=== PATIENT | male | born 1960 ===

== ENCOUNTER 2016-09-30 13:36 | Emergency (ER) | payer BC ==
--- NOTE | 2016-10-08 08:11 | ER ---
ADMIT: 09/30/2016 RM/LOC: ER [facility] MR#: [id number] [address] [facility] [address] [place], [place] [address] ARGELIA FAJARDO [address] [place] [address] Emergency Room Report SEX: M AGE: 56 : 1960 DATE: 09/30/2016 HISTORY OF PRESENT ILLNESS: The patient is a 56-year-old, male, who presents to the emergency room complaining of some weakness, headache, and epigastric pain. He does not go to a doctor unless it is something serious or he thinks he is extremely sick. He says 3 days ago at work did take his blood pressure and it was quite elevated, but he did not get to come around coming to the ER until today. He said he has sometimes some blurry vision and that is when he knows that his blood pressure is up. He does not recall having any issues with any medical history except his hypertension, which he does not take medication. He takes aspirin every once in a while, no allergies. PHYSICAL EXAMINATION: VITAL SIGNS: Blood pressure 153/106 with a heart rate of 95, respirations 18, temp is 98, and O2 sats 96%. GENERAL: Mildly anxious. HEENT: Normal inspection. Pharynx is clear. HEART: Respirations no distress. CVS: Regular in rate and rhythm. ABDOMEN: Mid epigastric tenderness. No pain elsewhere. EXTREMITIES: Well perfused. NEUROLOGIC: Oriented x4. WORKUP: CBC; white count 9.4, hemoglobin 13.9. Chemistry; glucose is 108, calcium 8.2. H. pylori reactive. TSH 0.389. UA normal. CLINICAL IMPRESSION: 1. Hypertension. 2. Gastritis. 3. Helicobacter pylori. The patient is given enalapril twice a day 2.5 mg, clarithromycin, amoxil, and omeprazole. Given a GI cocktail here in the ER. Advised to go home and rest and a note given for work. Referral to see Dr. Alvarez. HELADIO Tam / Henry Manning MD / daisy JOB #: [id number] CC: Henry Manning MD, Attending Physician Dominga Alvarez MD, Family Physician
== END 2016-09-30 17:35 | disposition home or self-care (01) ==
LOC: ER 13:36
DX: K29.70 Gastritis, unspecified, without bleeding (principal); B96.81 Helicobacter pylori [H. pylori] as the cause of diseases classified elsewhere; I10 Essential (primary) hypertension; Z79.82 Long term (current) use of aspirin

== ENCOUNTER 2016-10-03 15:12 | Emergency (ER) | payer BC ==
--- NOTE | 2016-10-04 10:00 | ER ---
ADMIT: 10/03/2016 RM/LOC: ER [facility] MR#: [id number] 26[address] [facility] [address] [place], [place] [address] KELSIE GERARD [address] [place] [address] [address] [place] [address] Emergency Room Report SEX: M AGE: 56 : 1960 DATE: 10/03/2016 PRIMARY PROVIDER: Margaux Magana. SUBJECTIVE: The patient is a 56-year-old male, who presents to the emergency room for the second time stating that he after taking his morning pill, he felt some pain in his stomach and feeling worse. He was seen on Monday, diagnosed with gastritis. He now has a headache, and he generally feels really bad. He complains that his gastritis medications are causing the problems. He does need a note, so he does not have to go to work today. PHYSICAL EXAMINATION: Vitals are within normal limits. MEDICATIONS: Enalapril, amoxicillin, clarithromycin, and omeprazole. Advised after talking to him that his medications are important to take for 14 days. He needs to take the medications according to how they were diagnosed and avoid eating heavy meals. He does work in an area where he is needing to have a lot of energy and strength, and he just does not feel like he is up to it. I gave a note for work today in addition to the one he received on Monday, encouraged to take some food with his medication and continue the therapy for 14 days. Follow up with the primary provider as we have requested in the past. DIAGNOSIS: Gastritis. Medications reviewed. HELADIO Tam / Dwain Harrison MD / odalysl JOB #: [id number] CC: Dwain Harrison MD, Attending Physician Sylvester Park MD, Family Physician
== END 2016-10-03 17:09 | disposition home or self-care (01) ==
LOC: ER 15:12
DX: K29.70 Gastritis, unspecified, without bleeding (principal); I10 Essential (primary) hypertension; Z79.899 Other long term (current) drug therapy

== ENCOUNTER 2016-10-10 17:39 | Emergency (ER) | payer BC ==
--- NOTE | 2016-10-18 21:19 | ER ---
ADMIT: 10/10/2016 RM/LOC: ER [facility] MR#: [id number] 26[address] [facility] [address] [place], [place] [address] KELSIE GERARD [address] [place] [address] [address] [place] [address] Emergency Room Report SEX: M AGE: 56 : 1960 DATE: 10/10/2016 ADDENDUM: CHIEF COMPLAINT: Chest pain. HISTORY OF PRESENT ILLNESS: This is a 56-year-old male, who actually seen twice in our ER. He was treated for H. pylori and hypertension. He still on the medications, which include enalapril, amoxicillin, clarithromycin, and omeprazole. He is not for sure if he is taking him how he is supposed to, but he has been noticing that he has had more pain since he has been taking the antibiotics. COURSE IN THE EMERGENCY DEPARTMENT: He was slightly tachycardic, and so I did do a cardiac workup on him. CBC, BMP, troponin, CK, CK-MB, D-dimer and chest x-ray and EKG was done. Chest x-ray is negative for any acute findings over- read by Dr. Nixon as D-dimer is 0.19. When I asked if he has any recent travel, surgery, or illnesses, he denies any hospitalizations or surgeries or travels. His risk factors for PE are low. BMP is normal. CK, MB, and troponin are normal. His white count was elevated at 12.1. His hemoglobin is 14.7, and platelets are 320. EKG showed sinus tach at a rate of 111, no ST elevation or depression over-read by Dr. Harrison. A GI cocktail was given to him. He said that actually significantly improved his pain. I told him that he just needs to continue his antibiotics and omeprazole. He really needs to push fluids and follow up with his primary care physician if symptoms continue. CLINICAL IMPRESSION: Helicobacter pylori with gastritis. HELADIO Samayoa / Andrea Nixon MD / daisy JOB #: [id number] CC: Dwain Harrison MD, Attending Physician Dominga Alvarez MD, Family Physician
== END 2016-10-10 20:46 | disposition home or self-care (01) ==
LOC: ER 17:39
DX: K29.70 Gastritis, unspecified, without bleeding (principal); B96.81 Helicobacter pylori [H. pylori] as the cause of diseases classified elsewhere; I10 Essential (primary) hypertension

== ENCOUNTER 2016-10-13 12:37 | Emergency (ER) | payer BC ==
--- NOTE | 2016-11-12 21:14 | ER ---
ADMIT: 10/13/2016 RM/LOC: ER [facility] MR#: [id number] [address] [address] ARGELIA FAJARDO [address] [place] [address] Emergency Room Report SEX: M AGE: 56 : 1960 DATE: 10/13/2016 A 56-year-old gentleman comes in with several days worth of difficulty swallowing. It is noted, however, he is swallowing his saliva. He had been seen in the Emergency Department on multiple occasions for same as well as seen his primary, Dr. Alvarez, for the same. Comes in today because it is not getting any better. See T-sheet for history and physical. A barium swallow was done in the Emergency Department which per Radiology showed a smooth stricture which was thought may be achalasia. The patient was instructed to follow up with Dr. Stewart tomorrow for further evaluation. Henry Manning MD/ daisy JOB #: [id number] CC: Henry Manning MD, Attending Physician Dominga Alvarez MD, Family Physician
== END 2016-10-13 15:00 | disposition home or self-care (01) ==
LOC: ER 12:37
DX: K22.0 Achalasia of cardia (principal); I10 Essential (primary) hypertension; Z79.899 Other long term (current) drug therapy